=== PATIENT | male | born 1950 | race Caucasian/White ===

== ENCOUNTER 2020-02-19 09:22 | Emergency (ER) | payer MEDICARE, OTHER, SELFPAY ==
[2020-02-19 09:24] VITALS: BP 144/106; PULSE 94; RESP 18; TEMP 36.2; O2SAT 98; BMI 31.6
--- NOTE | 2020-02-19 09:50 | ED.DCSUM_ITS ---
History of Present Illness Chief Complaint: Upper Extremity Injury Informant: Patient Narrative: 70-year-old male presenting with left shoulder pain. He states that he fell on the stairs injuring his right shoulder. No head injury or LOC. He is not on blood thinners. He states he has pain with range of motion of the left shoulder. He has no paresthesias. He states he has a history of prostate cancer which is in remission. He has no other medical problems except for GERD. Past Medical History - Allergies and Home Meds Allergies/Adverse Reactions: Allergies Iodinated Contrast Media Allergy (Verified 02/19/20 09:24) Rhiannon Primary Care Physician: [facility] Doctor,Out of [NON-STAFF] - Past Medical History: - - Prostate cancer in remission, GERD Lives: Spouse/ Significant Other Smoking Status: Unknown if ever smoked Alcohol: None Drugs: None Review of Systems General: Denies: Chills, Fever, Sweats Eyes: Denies: Visual changes - bilaterally, Diplopia ENT: Denies: Rhinorrhea, Sore throat Respiratory: Denies: Dyspnea, Cough, Dyspnea on exertion Gastrointestinal: Denies: Abdominal pain, Nausea, Vomiting, Diarrhea, Melena, Hematochezia Genitourinary: Denies: Dysuria, Hematuria, Frequency Musculoskeletal: Reports: - - Right shoulder pain Skin: Denies: Rash, Wounds Neurological: Denies: Headache, Weakness, Numbness Physical Exam Vital Signs/Narrative: Vital Signs Temp Pulse Resp BP Pulse Ox 02/19/20 09:24 97.2 F L 94 18 144/106 H 98 General: Well nourished, No Acute Distress Eyes: Perrl, EOMI ENT: Moist mucous membranes, No rhinorrhea Cardiovascular: Regular rate, Regular rhythm Respiratory: No distress, CTA bilaterally Back: Nontender, Normal Inspection Extremities: - - Left shoulder is tender to palpation at the AC joint as well as the proximal humerus. No obvious deformity. Limited range of motion secondary to pain. Skin: Normal color, No rash Neurological: Alert, Oriented x3 Psychological: Normal affect Diagnostic/Tx/Re-eval Clinical Impression(s) from Imaging Studies Shoulder X-Ray 02/19/20 09:50 IMPRESSION: Proximal humeral fracture. Acromioclavicular arthrosis. Electronically Signed: Willem Rae MD at 10:32 EDT Tel , Service support , - Medical Decision Making Patient presents after mechanical fall injuring his left shoulder. On x-ray he has a proximal humerus fracture. He has no neuro deficits. Patient was placed in a sling for comfort. He is given Percocet for home. Patient is stable for discharge. Impression: 1. Mechanical fall 2. Left proximal humerus fracture ED Disposition - Plan for ED Patient: Disposition: Home or Assisted Living Instructions: ED Fracture Upper Extremity Prescriptions: Oxycodone HCl/Acetaminophen [Percocet 5/325] 1 tab PO Q6H PRN PRN 3 Days #12 tab PRN Reason: Pain Prescription Printed Referrals: [facility] Doctor,Out of [NON-STAFF] -
--- NOTE | 2020-02-19 09:50 | RAD_ITS ---
STUDY: X-RAY - LEFT SHOULDER REASON FOR EXAM: Left shoulder pain from fall with left shoulder injury. TECHNIQUE: 3 view(s) of the shoulder. COMPARISON: None. FINDINGS: Normal glenohumeral articulation. There is acromioclavicular arthrosis. Normal acromion. There is a mildly comminuted fracture of the surgical neck of the humerus and a mildly displaced fracture of the greater tuberosity. The soft tissue structures are unremarkable. Normal visualized pulmonary apex. RAD/Shoulder min 2 Views IMPRESSION: Proximal humeral fracture. Acromioclavicular arthrosis. Electronically Signed: Willem Rae MD at 10:32 EDT Tel , Service support ,
[2020-02-19] MEDS: HYDROcodone Bitartrate/Apap 5/325 Tablet PO (09:59)
== END 2020-02-19 11:14 | disposition home or self-care (01) ==
LOC: ED 10:18
PROVIDERS: Emergency Provider Student in an Organized Health Care Education/Training Program
DX: S42.212A Unspecified displaced fracture of surgical neck of left humerus, initial encounter for closed fracture (principal); W10.9XXA Fall (on) (from) unspecified stairs and steps, initial encounter; Y93.9 Activity, unspecified; Y92.9 Unspecified place or not applicable; Y99.9 Unspecified external cause status; M19.012 Primary osteoarthritis, left shoulder; K21.9 Gastro-esophageal reflux disease without esophagitis; Z79.899 Other long term (current) drug therapy; Z85.46 Personal history of malignant neoplasm of prostate
CPT/HCPCS: 73030; 99281; 99284